=== PATIENT | female | born 1950 | race Caucasian/White ===

== ENCOUNTER 2025-02-07 09:55 | Outpatient (AMB) | payer MEDICARE, OTHER, SELFPAY ==
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
--- OUTSIDE RECORDS SUMMARY | 2025-02-07 10:54 | XMS_ITS ---
Author Name [facility] Organization Unknown Care Team Organization Name Specialty Phone Email Start Date End Da te [facility] 12/29/[address] [facility] Organization [facility] 03/19/2022 12/29/19 24
--- OUTSIDE RECORDS SUMMARY | 2025-02-07 10:54 | XMS_ITS | Clinical Summary ---
Author Organization [address] [facility] Address [address] [place] [address] Phone Care Team Providers Care Family Specialist Name Role Phone Yunior Sprague MD Primary Care Provider [phone] Allergies Active Allergy Reactions Criticality Noted Date Comments Codeine 08/28/2007 Other Reaction(s): Hives/Urticaria Escitalopram Oxalate 08/02/2016 Morphine Sulfate 08/28/2007 Other Reaction(s): Hives/Urticaria Medications aspirin 81 mg chewable tablet Chew 1 tablet (81 mg total) 1 (one) time each day. 01/20/2015 Active ALPRAZolam (XANAX) 0.5 mg tablet Take 1 tablet (0.5 mg total) by mouth 3 (three) times a day. 11/01/2015 Active calcium carb/vit D3/minerals (CALCIUM CARBONATE-VIT D3-MIN ORAL) Calcium Carbonate-Vi t D-Min (CALCIUM 1200 OR) Take 1,200 mg by mouth daily. Active omega-3 acid ethyl esters (LOVAZA) 1 gram capsule Take 1 capsule (1,000 mg total) by mouth 1 (one) time each day. Active atorvastatin (LIPITOR) 80 mg tablet Take 1 tablet by mouth once daily 90 tablet 2 05/18/2024 Active benazepriL (LOTENSIN) 20 mg tablet Take 1 tablet by mouth once daily 90 tablet 1 11/04/2024 Active hydroCHLOROthia zide 12.5 mg tablet Take 1 tablet by mouth once daily 90 tablet 11/24/2024 Active amLODIPine (NORVASC) 10 mg tablet Take 1 tablet by mouth once daily 90 tablet 12/13/2024 Active Active Problems Problem Noted Date Diagnosed Date Hyperlipidemia 07/10/2017 Assessment & Plan (09/02/2024 3:23 PM EDT): Stable on Lipitor. Hypertension 07/10/2017 Assessment & Plan (09/02/2024 3:23 PM EDT): Under control on benazepril and amlodipine and hydrochlorothiazide Adrenal nodule ([facility] V24) 02/07/2017 Carotid stenosis 02/07/2017 Anxiety 08/02/2016 Embolism involving retinal artery 08/02/2016 Depression 08/17/2015 Hearing loss 02/27/2015 Osteopenia 01/19/2015 Hemianopsia 01/13/2015 Chronic bronchitis ([facility] V24, [facility] V28) Degenerative joint disease (DJD) of hip 04/30/20 10 Immunizations Immunization Administration Dates Next Due Influenza trivalent, 0.5mL ( Fluad) 65yo and older 02/09/2021,02/10/2020 Influenza, Unspecified 02/22/2023 Moderna SARS-CoV-2 COVID-19, mRNA, LNP-S, preservative free 03/04/2021,08/24/2020,07/27/2020 Pneumococcal conjugate 13 va lent (Prevnar 13, PCV13) 2mo and older 01/18/2016 Pneumococcal polysaccharide 23 valent (Pneumovax 23) 2yo and older 10/29/2010 Tdap Tetanus diptheria acell ular pertussis (Boostrix; Adacel) 7yo and older 03/21/2022,05/15/2011 Zoster Live 11/20/2011 Surgical History Surgery Date Site/Laterality Comments LEG SURGERY PROCEDURE: HISTORICAL LEG SURGERY; COMMENT: closed treatment of tibial shaft fracture SECTION PROCEDURE: HISTORICAL OTHER SURGICAL HISTORY PROCEDURE: HISTORY OTHER; COMMENT: pyloromyotomy Medical History Medical History Date Comments Unspecified essential hypertension DX:Unspecified essential hypertension Adrenal nodule ([facility] V24) 02/07/2017 DX: Adrenal nodule (HCC) Anxiety 08/02/2016 DX:Anxiety Carotid stenosis 02/07/2017 DX:Carotid sten osis Chronic bronchitis ([facility] V24, [facility] V28) 05/23/2014 DX:Chronic bronchitis (HCC) Degenerative joint disease ( DJD) of hip 04/30/2010 DX:Degenerative joint diseas e (DJD) of hip Depression 08/17/2015 DX:Depression Embolism involving retinal artery 08/02/2016 DX:Embolism involving retinal artery Hearing loss 02/27/2015 DX:Hearing loss Hemianopsia 01/13/2015 DX:Hemianopsia Hyperlipidemia 07/10/2017 DX:Hyperlipidemi a Hypertension 07/10/2017 DX:Hypertension Osteopenia 01/19/2015 DX:Osteopenia Chronic bronchitis ([facility] V24, [facility] V28) 05/23/2014 Embolism involving retinal artery 08/02/2016 Family History Medical History Relation Name Comments Cataracts Mother Blindness Neg Hx Glaucoma Neg Hx Macular degeneration Neg Hx Strabismus Neg Hx Relation Name Status Comments Mother Social History Tobacco Use Types Packs/Day Years Used Date Smoking Tobacco: Former Cigarettes Q uit: 08/28/2015 Smokeless Tobacco: Never Alcohol Use Standard Drinks/Week Comments No 0 (1 standard drink = 0.6 oz pur e alcohol) Comments Unknown Sex and Gender Information Value Date Recorded Sex Assigned at Female 08/23/2024 9:56 AM EDT Legal Sex Female 9:53 AM EST Gender Identity Female 08/23/2024 9:56 AM EDT Sexual Orientation Straight 08/23/2024 9: 56 AM EDT Obstetrics History Last Filed Vital Signs Vital Sign Reading Time Taken Comments Blood Pressure 126/60 09/02/2024 1:23 PM EDT Pulse 56 09/02/2024 1:23 PM EDT Temperature 36.4 C (97.6 F) 09/02/2024 1:23 PM EDT Respiratory Rate 17 08/23/2024 9:22 AM EDT Oxygen Saturation 97% 09/02/2024 1:23 PM EDT Inhaled Oxygen Concentration - - Weight 64.1 kg (141 lb 6.4 oz) 09/02/2024 1:23 P M EDT Height 165.1 cm (5' 5 ) 08/23/2024 9:22 AM EDT Body Mass Index 23.53 08/23/2024 9:22 AM EDT Plan of Treatment Upcoming Encounters Date Type Department Care Team (Late st Contact Info) Description 03/10/2025 9:45 AM EDT Office Visit Internal Medicine - [place] [address] [facility] [place] [id number] Yunior Sprague MD [address] [facility] [place] [address] Health Maintenance Due Date Last Done Comments Breast Cancer Screening 1950 Zoster Vaccines (2 of 3) 01/15/2012 11/20/2011 Pneumococcal Vaccine: 50+ Years (3 of 3 - PCV20 or PCV21) 01/17/2021 01/18/2016, 10/29/2010 Colorectal Cancer Screening: Colonoscopy 04/09/2022 Hepatitis C Screening 04/09/2022 Osteoporosis Screening (Bone Density Screening) 04/09/2022 Social Influencers of Health Screening 04/09/2022 COVID-19 Vaccine ( season) 2025 02/27/2022, 08/12/2021, 03/04/2021, Additional history exists Influenza Vaccine (#1) 2025 , 02/22/2023, 03/26/2021, Additional history exists RSV Immunization Adult Patients (1 - 1-dose 75+ series) 2025 Hypertension/CHF/CAD Annual BMP Blood Test 08/23/2025 08/23/2024, 07/29/2023 Falls Risk Assessment 09/02/2025 09/02/2024 Medicare Annual Wellness Visit 09/02/2025 09/02/2024 Cholesterol Screening (Lipid Panel) 07/28/2028 07/29/2023 DTaP,Tdap,and Td Vaccines (3 - Td or Tdap) 03/21/2032 03/21/2022, 05/15/2011 Depression Screening Completed 09/02/2024, 08/29/19 HIB Vaccines Aged Out No longer eligi ble based on patient's age to complete this topic HPV Vaccines Aged Out No longer eligi ble based on patient's age to complete this topic Hepatitis A Vaccines Aged Out No long er eligible based on patient's age to complete this topic Hepatitis B Vaccines Aged Out No long er eligible based on patient's age to complete this topic IPV Vaccines Aged Out No longer eligi ble based on patient's age to complete this topic MMR Vaccines Aged Out No longer eligi ble based on patient's age to complete this topic Meningococcal ACWY Vaccine Aged Out N o longer eligible based on patient's age to complete this topic Meningococcal B Vaccine Aged Out No l onger eligible based on patient's age to complete this topic RSV Immunization Patients Under 20 months Aged Out No longer eligible based on patient's age to complete this topic Varicella Vaccines Aged Out No longer eligible based on patient's age to complete this topic Procedures Procedure Name Priority Date/Time Associated Diagnosis Comments BASIC METABOLIC PANEL STAT 08/23/2024 10:57 AM EDT DEPRESSION SCREENING Routine 08/29/2023 LIPID PANEL Routine 07/29/2023 from Last 3 Months or Most Recently Relevant to Health Maintenance Results * (ABNORMAL) Basic metabolic panel (08/23/2024 10:57 AM EDT) Sodium 142 133 - 145 mmol/L LAB CHEMISTRY METHOD 08/23/2024 12:39 PM [facility] Potassium 3.3(L) 3.5 - 5.5 mmol/L LAB CHEMISTRY METHOD 08/23/2024 12:39 PM [facility] Chloride 104 96 - 110 mmol/L LAB CHEMISTRY METHOD 08/23/2024 12:39 PM [facility] CO2 31 21 - 32 mmol/L LAB CHEMISTRY METHOD 08/23/2024 12:39 PM [facility] Anion Gap 7 3 - 11 LAB CHEMISTRY METHOD 08/23/2024 12:39 PM [facility] Glucose 116(H) 70 - 100 mg/dL LAB CHEMISTRY METHOD 08/23/2024 12:39 PM [facility] BUN 22 5 - 25 mg/dL LAB CHEMISTRY METHOD 08/23/2024 12:39 PM EDT [facility] Creatinine 0.94 0.50 - 1.10 mg/dL LAB CHEMISTRY METHOD 08/23/2024 12:39 PM EDT [facility] eGFR 64 >=60 mL/min/1. 73m2 LAB CHEMISTRY METHOD 08/23/2024 12:39 PM EDT [facility] Comment:Calculation based on the Chronic Kidney Disease Epidemiology Collaboration (CKD-EPI) equation refit without adjustment for race. BUN/Creatinine Ratio 23.4 LAB CHEMISTRY METHOD 08/23/2024 12:39 PM EDT [facility] Calcium 10.1 8.5 - 10.5 mg/dL LAB CHEMISTRY METHOD 08/23/2024 12:39 PM EDT [facility] Blood Venous blood specimen / Unknown Venipuncture / Unknown 08/23/2024 10:57 AM EDT 08/23/2024 12:11 PM EDT Santi Gomez MD LAB BLOOD ORDERABLES Final Resu lt [facility] [address] [place] [address], * Depression Screening (08/29/2023) Pathologist [facility] Depression Screening Abstracted Historical Provider HEALTH MAINTENANCE Final Result * Lipid panel (07/29/2023) LDL/HDL Ratio 2 0 - 4 Triglycerides 78 0 - 150 mg/dL Cholesterol 140 0 - 200 mg/dL HDL 85 >=40 mg/dL LDL Cholesterol 40 0 - 100 mg/dL Blood Venous blood specimen / Unknown us Historical Provider LAB BLOOD ORDERABLES Stacey l Result from Last 3 Months or Most Recently Relevant to Health Maintenance Insurance MEDICARE [facility] Care Teams Family Specialist Relationship Specialty Start Date End Date Yunior Sprague MD [address] [address] PCP - General Internal Medicine 05/28/18
== END 2025-02-07 10:21 | disposition home or self-care (01) ==
LOC: HO.HSM 09:56
PROVIDERS: PCP Internal Medicine; Referring Provider Internal Medicine; Visit Provider Registered Nurse
DX: H34.231 Retinal artery branch occlusion, right eye (principal); F41.9 Anxiety disorder, unspecified; G31.84 Mild cognitive impairment of uncertain or unknown etiology
CPT/HCPCS: 99214

== ENCOUNTER → 2025-02-07 09:55 | Outpatient (BNVA) | payer MEDICARE, SELFPAY | PROVIDERS: PCP Internal Medicine; Referring Provider Internal Medicine; Visit Provider Registered Nurse | DX: H34.231 Retinal artery branch occlusion, right eye (principal); F41.9 Anxiety disorder, unspecified; G31.84 Mild cognitive impairment of uncertain or unknown etiology | CPT/HCPCS: 99212 ==